=== PATIENT | female | born 1930 | race African-American/Black ===

== ENCOUNTER 2017-08-05 10:04 | Inpatient (IN) | payer OTHER ==
[~2017-08-05] VITALS: Ht 157.5 cm; Wt 59.0 kg
[2017-08-05] VITALS (13 sets, daily range): BP systolic 103–184; BP diastolic 57–96
[2017-08-05] MEDS ORDERED: GABA-531 PO (10:32)
[2017-08-05] MEDS ORDERED: DOCU-138 PO (10:32)
[2017-08-05] MEDS ORDERED: TRAM50TA3 PO ×3 (10:32→17:26)
[2017-08-05] MEDS ORDERED: METO-396 PO (10:32)
[2017-08-05] MEDS ORDERED: AMLO2.5T45 PO (10:32)
[2017-08-05] MEDS ORDERED: CLON0.1T PO (10:32)
[2017-08-05] MEDS ORDERED: POTA20TA82 PO (10:32)
[2017-08-05] MEDS ORDERED: ONDANSETRON HCL 4MG/2ML VIAL IV STA (10:38)
[2017-08-05] MEDS ORDERED: FAMOTIDINE 20MG/2ML VIAL IV ONE (10:45)
[2017-08-05] MEDS ORDERED: LORAZEPAM 2MG/ML CPJ IV ONE (10:45)
[2017-08-05] MEDS ORDERED: SODIUM CHLORIDE 0.9% 1000ML BAG (SEPSIS BOLUS) IV ONE (10:45)
[2017-08-05] MEDS ORDERED: ALPR-392 PO (11:01)
[2017-08-05 11:09] LABS: BASOPHILS % 0.9 % (0.0-2.0); EOSINOPHILS % 0.6 % (0.0-5.0); HEMATOCRIT. 45.2 % (36.0-48.0); HEMOGLOBIN. 15.6 g/dL (12.0-16.0); LYMPHOCYTES % 26.8 % (20.0-50.0); MEAN PLATELET VOLUME 7.8 fl (7.4-10.4); MONOCYTES % 7.6 % (2.0-8.0); NEUTROPHILS % 64.1 % (40.0-76.0); PLATELET 304 x1000/uL (130-400); RED BLOOD CELL COUNT 4.71 mill/uL (4.2-5.4); RED CELL DISTRIBUTION WIDTH 13.9 % (11.6-14.6)
[2017-08-05 11:19] LABS: GLUCOSE URINE NEGATIVE (NEGATIVE); KETONES URINE NEGATIVE (NEGATIVE); LEUKOCYTE ESTERASE URINE NEGATIVE (NEGATIVE); NITRITE URINE NEGATIVE (NEGATIVE); OCCULT BLOOD URINE NEGATIVE (NEGATIVE); PH URINE 7.5 (4.5-8.0); PROTEIN URINE NEGATIVE (NEGATIVE); SPECIFIC GRAVITY URINE 1.008 (1.005-1.030); UROBILINOGEN URINE 0.2 E.U./dL (0.2-1.0)
[2017-08-05 11:20] LABS: CARBON DIOXIDE 30 mEq/L (21-32); CHLORIDE 102 mEq/L (98-107)
[2017-08-05 11:26] LABS: CLARITY URINE CLEAR (CLEAR); COLOR URINE YELLOW (YELLOW)
[2017-08-05 11:27] LABS: AMYLASE 82 IU/L (25-115)
[2017-08-05 11:28] LABS: TROPONIN I 0.03 ng/mL (0.00-0.04)
[2017-08-05] MEDS ORDERED: KCL 20MEQ/100ML PREMIX 100 ML IV ONE (11:30)
[2017-08-05 11:51] LABS: INR 1.1; PARTIAL THROMBOPLASTIN TIME 24.8 sec (23.4-31.0); PROTHROMBIN TIME 11.1 sec (9.4-11.6)
[2017-08-05] MEDS ORDERED: ONDANSETRON HCL 4MG/2ML VIAL IV PRN ×2 (13:30→21:45)
[2017-08-05] MEDS ORDERED: HYDRALAZINE 20MG/ML VIAL IV PRN (13:30)
[2017-08-05] MEDS ORDERED: LACTULOSE 20G/30ML UDC PO NR (15:30)
[2017-08-05] MEDS ORDERED: NA PHOS,M-B/NA PHOS,DI-BA ENEMA 118ML PR NR (15:30)
[2017-08-05] MEDS: LORAZEPAM 2MG/ML CPJ IV PRN (15:46)
[2017-08-05] MEDS ORDERED: DEXT 5%/0.45% NACL KCL 20MEQ/L 1,000 ML IV SCH (17:00)
[2017-08-05] MEDS ORDERED: HYDROMORPHONE HCL/PF 2MG/ML CPJ IV NR (17:26)
[2017-08-05] MEDS: DEXT 5%/0.45% NACL KCL 20MEQ/L 1,000 ML IV SCH (17:41)
[2017-08-05] MEDS ORDERED: TRAMADOL 50MG TABLET PO NR (18:53)
[2017-08-05] MEDS ORDERED: GABAPENTIN 300MG CAPSULE PO NR (18:54)
[2017-08-05] MEDS ORDERED: LACTULOSE 20G/30ML UDC PO PRN (21:00)
[2017-08-05] MEDS: METOPROLOL TARTRATE 50MG TABLET PO SCH (21:43)
[2017-08-05] MEDS: METOCLOPRAMIDE HCL 10MG/2ML VIAL IV SCH (22:15)
[2017-08-06] VITALS (8 sets, daily range): BP systolic 137–168; BP diastolic 73–88
[2017-08-06] MEDS: METOCLOPRAMIDE HCL 10MG/2ML VIAL IV SCH ×3 (06:00→21:53)
[2017-08-06] MEDS: GABAPENTIN 300MG CAPSULE PO SCH ×3 (06:00→21:52)
[2017-08-06] MEDS: DEXT 5%/0.45% NACL KCL 20MEQ/L 1,000 ML IV SCH ×2 (06:30→18:00)
[2017-08-06] MEDS: METOPROLOL TARTRATE 50MG TABLET PO SCH ×2 (09:00→21:53)
[2017-08-06 10:13] LABS: BASOPHILS % 0.4 % (0.0-2.0); EOSINOPHILS % 0.2 % (0.0-5.0); HEMATOCRIT. 39.9 % (36.0-48.0); HEMOGLOBIN. 13.5 g/dL (12.0-16.0); LYMPHOCYTES % 22.2 % (20.0-50.0); MEAN CORPUSCULAR HEMOGLOBIN 32.6 pg (28.0-32.0); MEAN CORPUSCULAR VOLUME 96.3 fL (81.0-99.0); MEAN PLATELET VOLUME 8.2 fl (7.4-10.4); MONOCYTES % 10.9 % (2.0-8.0); NEUTROPHILS % 66.3 % (40.0-76.0); PLATELET 275 x1000/uL (130-400); RED BLOOD CELL COUNT 4.14 mill/uL (4.2-5.4); RED CELL DISTRIBUTION WIDTH 13.9 % (11.6-14.6)
[2017-08-06 10:45] LABS: CARBON DIOXIDE 28 mEq/L (21-32); CHLORIDE 106 mEq/L (98-107)
[2017-08-06 10:49] LABS: HDL CHOLESTEROL 40 mg/dL (40-59); LDL CHOLESTEROL 123 mg/dL (5-100); T4 FREE 1.15 ng/dL (0.76-1.46)
[2017-08-06] MEDS ORDERED: POTASSIUM CHLORIDE 20MEQ/PACKET PO NR ×2 (11:45→15:00)
[2017-08-06] MEDS: CLONIDINE 0.1MG TABLET PO SCH ×2 (13:21→23:52)
[2017-08-07] VITALS (16 sets, daily range): BP systolic 97–175; BP diastolic 52–79
[2017-08-07] MEDS: CLONIDINE 0.1MG TABLET PO SCH ×3 (06:00→21:05)
[2017-08-07] MEDS: METOCLOPRAMIDE HCL 10MG/2ML VIAL IV SCH ×3 (06:25→21:05)
[2017-08-07] MEDS: GABAPENTIN 300MG CAPSULE PO SCH ×3 (06:26→21:05)
[2017-08-07] MEDS: DEXT 5%/0.45% NACL KCL 20MEQ/L 1,000 ML IV SCH ×2 (06:27→18:51)
[2017-08-07] MEDS: METOPROLOL TARTRATE 50MG TABLET PO SCH ×3 (08:48→21:00)
[2017-08-07 09:25] LABS: BASOPHILS % 0.8 % (0.0-2.0); EOSINOPHILS % 1.3 % (0.0-5.0); HEMATOCRIT. 39.6 % (36.0-48.0); HEMOGLOBIN. 13.4 g/dL (12.0-16.0); MEAN CORPUSCULAR HEMOGLOBIN 32.8 pg (28.0-32.0); MEAN CORPUSCULAR VOLUME 96.7 fL (81.0-99.0); MEAN PLATELET VOLUME 7.8 fl (7.4-10.4); MONOCYTES % 7.2 % (2.0-8.0); NEUTROPHILS % 54.7 % (40.0-76.0); PLATELET 221 x1000/uL (130-400); RED BLOOD CELL COUNT 4.09 mill/uL (4.2-5.4); RED CELL DISTRIBUTION WIDTH 13.5 % (11.6-14.6)
[2017-08-07 09:40] LABS: CARBON DIOXIDE 27 mEq/L (21-32); CHLORIDE 105 mEq/L (98-107); PHOSPHORUS 1.7 mg/dL (2.5-4.9)
[2017-08-07] MEDS: TRAMADOL 50MG TABLET PO PRN ×2 (10:03→17:19)
[2017-08-07] MEDS: LORAZEPAM 2MG/ML CPJ IV PRN (10:59)
[2017-08-07] MEDS ORDERED: POTASSIUM PHOS,M-BASIC-D-BASIC 15 MMOL in DEXT 5% WATER 245 ML IV NR (11:30)
[2017-08-07] MEDS ORDERED: IBUPROFEN 800MG TABLET PO PRN (13:00)
[2017-08-07] MEDS: IBUPROFEN 600MG TABLET PO PRN (13:50)
[2017-08-07] MEDS: ENOXAPARIN 40MG/0.4ML SYR SUBCUT SCH (16:51)
[2017-08-07] MEDS ORDERED: TEMAZEPAM 15MG CAPSULE PO PRN (21:15)
[2017-08-08] VITALS (18 sets, daily range): BP systolic 103–163; BP diastolic 63–113
[2017-08-08] MEDS: TRAMADOL 50MG TABLET PO PRN ×2 (03:45→10:33)
[2017-08-08] MEDS: GABAPENTIN 300MG CAPSULE PO SCH ×3 (05:53→21:25)
[2017-08-08] MEDS: CLONIDINE 0.1MG TABLET PO SCH ×3 (05:54→21:27)
[2017-08-08] MEDS: METOCLOPRAMIDE HCL 10MG/2ML VIAL IV SCH ×3 (05:56→21:28)
[2017-08-08] MEDS: DEXT 5%/0.45% NACL KCL 20MEQ/L 1,000 ML IV SCH (08:03)
[2017-08-08] MEDS: ENOXAPARIN 40MG/0.4ML SYR SUBCUT SCH (08:04)
[2017-08-08] MEDS: METOPROLOL TARTRATE 50MG TABLET PO SCH ×2 (08:04→21:27)
[2017-08-08] MEDS: LORAZEPAM 2MG/ML CPJ IV PRN (12:34)
[2017-08-08 18:25] LABS: CHLORIDE 101 mEq/L (98-107)
[2017-08-08] MEDS: IBUPROFEN 600MG TABLET PO PRN (18:29)
[2017-08-08 18:30] LABS: CARBON DIOXIDE 28 mEq/L (21-32)
[2017-08-08] MEDS ORDERED: TRAMADOL 50MG TABLET PO NR (19:15)
[2017-08-08] MEDS: TAMSULOSIN HCL 0.4MG SR CAPSULE PO SCH (21:25)
[2017-08-09] VITALS (12 sets, daily range): BP systolic 96–131; BP diastolic 52–83
[2017-08-09] MEDS: TRAMADOL 50MG TABLET PO SCH ×6 (04:22→20:22)
[2017-08-09] MEDS: GABAPENTIN 300MG CAPSULE PO SCH ×3 (05:56→22:41)
[2017-08-09] MEDS: METOCLOPRAMIDE HCL 10MG/2ML VIAL IV SCH ×3 (05:56→22:42)
[2017-08-09] MEDS: CLONIDINE 0.1MG TABLET PO SCH ×3 (05:59→22:41)
[2017-08-09] MEDS: METOPROLOL TARTRATE 50MG TABLET PO SCH ×2 (08:38→20:23)
[2017-08-09] MEDS ORDERED: POTASSIUM CHLORIDE 20MEQ TABLET SR PO NR (09:45)
[2017-08-09] MEDS ORDERED: MAGNESIUM 2 G PREMIX 50 ML IV NR (11:30)
[2017-08-09] MEDS: TAMSULOSIN HCL 0.4MG SR CAPSULE PO SCH (20:23)
[2017-08-10] VITALS (13 sets, daily range): BP systolic 96–125; BP diastolic 50–71
[2017-08-10] MEDS: TRAMADOL 50MG TABLET PO SCH ×6 (04:14→17:27)
[2017-08-10] MEDS: GABAPENTIN 300MG CAPSULE PO SCH ×2 (05:25→15:05)
[2017-08-10] MEDS: CLONIDINE 0.1MG TABLET PO SCH ×2 (05:26→15:07)
[2017-08-10] MEDS: METOCLOPRAMIDE HCL 10MG/2ML VIAL IV SCH ×2 (05:26→15:05)
[2017-08-10] MEDS: METOPROLOL TARTRATE 50MG TABLET PO SCH (08:44)
[2017-08-10 09:06] LABS: AMYLASE 52 IU/L (25-115)
[2017-08-10 10:21] LABS: BASOPHILS % 0.4 % (0.0-2.0); EOSINOPHILS % 2.1 % (0.0-5.0); HEMATOCRIT. 34.7 % (36.0-48.0); HEMOGLOBIN. 11.8 g/dL (12.0-16.0); LYMPHOCYTES % 31.4 % (20.0-50.0); MEAN CORPUSCULAR HEMOGLOBIN 33.1 pg (28.0-32.0); MEAN CORPUSCULAR VOLUME 96.7 fL (81.0-99.0); MEAN PLATELET VOLUME 8.6 fl (7.4-10.4); MONOCYTES % 11.7 % (2.0-8.0); NEUTROPHILS % 54.4 % (40.0-76.0); PLATELET 229 x1000/uL (130-400); RED BLOOD CELL COUNT 3.58 mill/uL (4.2-5.4)
[2017-08-10 10:27] LABS: CARBON DIOXIDE 26 mEq/L (21-32); CHLORIDE 103 mEq/L (98-107)
== END 2017-08-10 18:30 | disposition home or self-care (01) | DRG 438 ==
LOC: ENRESERV 10:56 → ER 11:43 → EDBEDREQ 11:57 → 3WST 13:25
PROVIDERS: ADMIT Internal Medicine; ATTEND Internal Medicine
DX: K85.90 Acute pancreatitis without necrosis or infection, unspecified (principal); G93.40 Encephalopathy, unspecified; E87.2 Acidosis; K56.7 Ileus, unspecified; R13.10 Dysphagia, unspecified; M32.9 Systemic lupus erythematosus, unspecified; E86.0 Dehydration; K56.41 Fecal impaction; K52.9 Noninfective gastroenteritis and colitis, unspecified; K57.90 Diverticulosis of intestine, part unspecified, without perforation or abscess without bleeding; E87.6 Hypokalemia; R73.9 Hyperglycemia, unspecified; D64.9 Anemia, unspecified; F03.90 Unspecified dementia, unspecified severity, without behavioral disturbance, psychotic disturbance, mood disturbance, and anxiety; F41.9 Anxiety disorder, unspecified; G89.4 Chronic pain syndrome; I10 Essential (primary) hypertension; M19.90 Unspecified osteoarthritis, unspecified site; M48.061 Spinal stenosis, lumbar region without neurogenic claudication; N27.0 Small kidney, unilateral; M54.5 Low back pain; R26.9 Unspecified abnormalities of gait and mobility; Z79.899 Other long term (current) drug therapy; Z95.0 Presence of cardiac pacemaker; R00.1 Bradycardia, unspecified
CPT/HCPCS: 36415; 51702; 71010; 74000; 74176; 76705; 80048; 80053; 80061; 81003; 82150; 83605; 83690; 83735; 83880; 84100; 84132; 84439; 84443; 84484; 85025; 85610; 85730; 86850; 86900; 87040; 87086; 93005; 93306; 93970; 96374; 96375; 97110; 97116; 97162; 97530; 99291; J1170; J1650; J2060; J2405; J2765; J3475; J3480; J3490; J7030; J7060